=== PATIENT | female | born 1980 | race Caucasian/White ===

== ENCOUNTER 2018-05-16 23:43 | Observation (INO) ==
[2018-05-17] MEDS ORDERED: NS 1,000 ML IV ONE (00:16)
[2018-05-17 00:31] LABS: INFLUENZA A NEGATIVE (NEGATIVE); INFLUENZA B NEGATIVE (NEGATIVE)
[2018-05-17 00:40] LABS: BILIRUBIN URINE NEGATIVE (NEGATIVE); BLOOD URINE 4+ (NEGATIVE); CLARITY SL. CLOUDY (CLEAR); COLOR YELLOW; GLUCOSE URINE NEGATIVE (NEGATIVE); KETONE URINE NEGATIVE (NEGATIVE); LEUKOCYTES URINE 2+ (NEGATIVE); NITRITE URINE NEGATIVE (NEGATIVE); PH URINE 6.5; PROTEIN URINE 1+(30 mg/dL) mg/dL (NEGATIVE); UROBILINOGEN URINE NORMAL
[2018-05-17 00:41] LABS: URINE BACTERIA 3+ /HFP; URINE EPITHELIAL CELLS <10 /HPF (<10); URINE RBC TNTC /HPF (<10); URINE SOURCE CLEAN CATCH; URINE WBC 20-40 /HPF (<10)
[2018-05-17] MEDS ORDERED: TYLENOL PO ONE ×2 (00:59→02:52)
[2018-05-17 01:15] LABS: AGAP 14; ALBUMIN 3.5 g/dL (3.5-5.0); ALKALINE PHOSPHATASE 134 U/L (32-104); BUN 4 mg/dL (8-22); CALCIUM 8.4 mg/dL (8.8-10.2); CHLORIDE 96 mmol/L (98-107); COSMO 264; CREATININE 0.7 mg/dL (0.5-0.9); ESTIMATED GFR > 60; GLUCOSE 151 mg/dL (70-104); GOT 23 U/L (10-30); GPT 22 U/L (10-36); POTASSIUM 3.6 mmol/L (3.5-5.1); SODIUM 132 mmol/L (136-145); TCO2 22 mmol/L (25-35); TOTAL PROTEIN 7.3 g/dL (6.3-8.3)
[2018-05-17 01:21] LABS: BASO# 0.05 X1000 (0.0-0.2); BASO% 0.4 % (0.0-0.8); EOS# 0.03 X1000 (0.0-0.7); EOS% 0.2 % (0.0-10.0); HEMATOCRIT 43.8 % (37.0-47.0); HEMOGLOBIN 15.6 g/dL (12.0-16.0); IMM GRAN# 0.03 X1000 (0.0-0.04); IMM GRAN% 0.2 % (0.0-0.5); LYMPH# 1.63 X1000 (1.2-3.4); MCH 32.8 PG (27-31); MCHC 35.6 g/dL (33-37); MCV 92.2 FL (81-99); MONO# 1.41 X1000 (0.11-0.59); MONO% 11.2 % (1.7-9.3); MPV 10.2 FL (7.4-10.4); PLT 231 X1000 (130-400); RBC 4.75 XMIL (4.2-5.4); RDW 12.1 % (11.5-14.5); WBC 12.55 X1000 (4.8-10.8)
[2018-05-17] MEDS ORDERED: PROTONIX IV ONE (02:12)
[2018-05-17] MEDS ORDERED: SODIUM CHLORIDE 0.9% INJ ONE (02:12)
[2018-05-17] MEDS: LEVAQUIN 750 MG/D5W 750 MG/150 ML IVPB IV SCH (03:25)
--- NOTE | 2018-05-17 06:15 | Diag Imaging Result Doc PS360 ---
EXAM: CT ABD/PELVIS W/IV CONT ONLY HISTORY: pyelonephritis, nephroliathisis TECHNIQUE: CT abdomen and pelvis with intravenous contrast. COMPARISON: None. FINDINGS: There are bilateral breast implants. No calcified gallstones or adjacent inflammation. There is fatty infiltration of the liver. Normal spleen, pancreas, and adrenal glands. Normal enhancement of the left kidney. There is a 3.0 cm area in the upper pole of the right kidney with decreased enhancement. Mild perinephric inflammation. No hydronephrosis. Normal aorta. Normal appendix. No abscess. No bowel obstruction. No ascites. The urinary bladder is moderately distended and is normal. Normal uterus. There is an intrauterine device. Neither ovary is enlarged. IMPRESSION: 1.Right upper pole possible nephritis. Follow-up recommended. 2.Fatty infiltration of the liver 3.A preliminary report was given at 2:32 AM. This exam was performed using automated exposure control, adjustment of mA or kV according to patient size, and/or use of iterative reconstruction technique. Electronically signed by Ernie Dunn 05/17/2018 6:12 AM
[2018-05-17] MEDS: TYLENOL PO PRN ×2 (12:20→21:04)
[2018-05-17] MEDS ORDERED: TYLENOL PO PRN (12:21)
[2018-05-17] MEDS ORDERED: ZOFRAN IV PRN (12:21)
[2018-05-17] MEDS ORDERED: SYNTHROID PO SCH (12:30)
[2018-05-17] MEDS: PRINIVIL PO SCH (12:55)
[2018-05-17] MEDS: SYNTHROID PO SCH (12:55)
[2018-05-17] MEDS: NS 1,000 ML IV SCH (12:56)
[2018-05-17] MEDS ORDERED: SODIUM CHLORIDE 0.9% INJ SCH (14:00)
[2018-05-17] MEDS: PROTONIX IV SCH (15:25)
[2018-05-17] MEDS: ZOSYN 3.375 GM in NS 50 ML IV SCH ×2 (15:25→21:04)
--- NOTE | 2018-05-17 16:39 | PROVIDER DOCUMENTATION ---
This chart was entered by Mily Dias Scribe, acting as scribe for Ketty Kaplan MD. HPI-Abdominal Pain/GI Problem - General Source: patient - History of Present Illness-ABD Nature of Presenting Problems: 38 yof presents to ed w/co body aches, dizziness, sweating, fever, hot and cold chills, lower back, abd pain on right side and chest pain. pt also states she started new job and on the way home 2 days ago she vomited and had some nausea. pt believes shes had uti symptoms for few weeks now. c/o burning when urinating and feeling like she needs to "keep pushing" when going to the bathroom. pt noticed some blood spots on underwear. <Ketty Kaplan - Last Filed: 05/17/18 02:21> <Krissy Thornton - Last Filed: 05/17/18 02:47> - General Chief Complaint: Generalized Pain Stated Complaint: ALL OVER PAIN Time Seen by Provider: 05/17/18 00:09 Allergies/Adverse Reactions: Patient Allergies Allergy/AdvReac Type Severity Reaction Status Date / Time No Known Allergies Allergy Verified 05/17/18 00:12 Home Medications: Home Medication List Medication Instructions Recorded Confirmed Last Taken Type Levothyroxine Sodium [Synthroid] 150 microgm PO DAILY 09/04/14 05/17/18 History Lisinopril 20 mg PO DAILY 09/04/14 05/17/18 09/04/14 History Metoprolol [Lopressor] 50 mg PO DAILY 09/04/14 05/17/18 09/04/14 History Review of Systems - Adult - REVIEW OF SYSTEMS - ADULT Constitutional: reports: see HPI, chills, fever, night sweats. denies: fatique Eyes: reports: no symptoms reported Ears, Nose, Mouth & Throat: reports: no symptoms reported Cardiovascular: reports: see HPI, chest pain. denies: heart murmur, irregular heart rate, palpitations Respiratory: reports: no symptoms reported Gastrointestinal: reports: see HPI, abdominal pain, nausea, vomiting. denies: constipation, diarrhea, difficulty swallowing, rectal bleeding Genitourinary: reports: see HPI, dysuria, discharge (blood in underwear), urgency. denies: frequency, frequent UTI's, hesitency Musculoskeletal: reports: see HPI, back pain (lower back). denies: joint pain, joint swelling, muscle aches Integumentary: reports: no symptoms reported Neurological: reports: no symptoms reported Psychiatric: reports: no symptoms reported Endocrine: reports: see HPI, excessive sweating. denies: change in skin pigment , goiter, increased thirst, polyuria Hematologic/Lymphatic: reports: no symptoms reported Allergic/Immunologic: reports: no symptoms reported All Other Systems: Reviewed and Negative <Ketty Kaplan - Last Filed: 05/17/18 02:21> Past History - Adult - PAST MEDICAL HISTORY-ADULT Review of Records: reports: Old Records Reviewed, Nursing Assessment Review, Medications Reviewed, Social history reviewed & non-contributory. Major Childhood Illnesses: reports: history unknown Cardiovascular: reports: HTN, hyperlipidemia Respiratory: reports: denies history Gastrointestinal: reports: GERD Obstetrical/Gynecological: reports: denies history Genitourinary: reports: denies history Musculoskeletal: reports: denies history Neurological: reports: denies history Endocrine/Immune: reports: denies history, thyroid disorder Other Conditions: reports: denies history - PRIOR SURGERIES/PROCEDURES Surgical/Procedure History: reports: , breast - IMMUNIZATION STATUS Childhood Immunizations: See Nurse Assessment Flu Vaccine: See Nurse Assessment - FAMILY HISTORY Family History: other (SISTER HAS CHRONS DIAGNOSED AT 13) - SOCIAL HISTORY Smoking: cigarettes, less than 1 pack/day Provider spent 3-5 mins advising pt. on dangers of tobacco.: Discussed manners to quit use, and f/u contacts for add'l counseling. Substance Use: alcohol (2 beers daily) <Ketty Kaplan - Last Filed: 05/17/18 02:21> Physical Exam-General - PHYSICAL EXAM-ADULT Initial Vital Signs Reviewed: Yes - CONSTITUTIONAL General Appearance: alert, mild distress - EYES Eyes: PERRL/EOMI, pink conjunctivae - HEAD, EARS, NOSE, MOUTH & THROAT HENMT: normocephalic/atraumatic, moist mucous membranes, normal ENT inspection - NECK Neck: non-tender, full range of motion, supple - RESPIRATORY Respiratory: chest non-tender, lungs clear, normal breath sounds - CARDIOVASCULAR Cardiovascular: normal peripheral pulses, regular rate, rhythm. negative: bradycardia, tachycardia, extra beats - GASTROINTESTINAL (ABDOMEN) Abdominal Exam: normal bowel sounds, soft, tenderness (ruq). negative: abdominal bruit, abnormal bowel sounds, distended - LYMPHATIC Lymphatic: no adenopathy - MUSCULOSKELETAL Back Exam: normal inspection, decreased range of motion, other (lower back tenderness). negative: ecchymosis, kyphosis, lordosis Extremity: normal range of motion, non-tender, normal inspection - SKIN Integumentary: normal color, normal turgor, diaphoresis. 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 negative: anxious, paranoid, tearful <Ketty Kaplan - Last Filed: 05/17/18 02:21> Progress - PLAN OF CARE/RESULTS Progress/Plan/Lab Results: Vital Signs - 8 hr 05/16/18 23:48 Temperature 100.0 F H Pulse Rate 122 H Respiratory Rate 20 Blood Pressure 174/107 O2 Sat by Pulse Oximetry 97 Bedside Urine ED: Urine Bedside Start: 05/16/18 23:59 Freq: ORDERED Status: Active Protocol: Activity Type Activity Date Activity User E-Sign Co-Sign Detail Recorded Client Recorded Date Recorded By Document 05/17/18 00:01 [id number] 05/17/18 00:02 [id number] 05/17/18 00:01 Point of Care [Bedside Point of Care] -Lot # [id number] - Results Negative -Control Line Visible? Yes Orders Category Date Time Status ED: Urine Bedside ORDERED Care 05/16/18 23:[address] Stat Lab 05/16/18 23:[address] W/POSS RFLX CULT [URINALYSIS] Stat Lab 05/16/18 23:50 Received 0.9% Sodium Chloride Inj [Ns] 1,000 ml Med 05/17/18 00:16 Active IV 999 mls/hr Result Diagrams: 05/17/18 00:56 05/17/18 00:56 - REASSESSMENT Reassessment #1 Time Reassessed: 02:21 (states that she feels better with treatment so far. however air conditioning technician reports taht while she was in the CT, pt had hematemesis x1. protonix given. type and cross. ) Status: improving - CHANGE OF SHIFT REPORT (ED Provider) 1 Report Given and Care Transferred to:: Dr. Thornton Time of Transfer: 02:22 Items Pending: CT/MRI Results <Ketty KaplanNighat - Last Filed: 05/17/18 02:21> - PLAN OF CARE/RESULTS Progress/Plan/Lab Results: Vital Signs - 8 hr 05/16/18 23:48 05/17/18 02:38 Temperature 100.0 F H 100.9 F H Pulse Rate 122 H 102 H Respiratory Rate 20 20 Blood Pressure 174/107 146/94 O2 Sat by Pulse Oximetry 97 97 Bedside Urine ED: Urine Bedside Start: 05/16/18 23:59 Freq: ORDERED Status: Active Protocol: Activity Type Activity Date Activity User E-Sign Co-Sign Detail Recorded Client Recorded Date Recorded By Document 05/17/18 00:01 [id number] 05/17/18 00:02 [id number] 05/17/18 00:01 Point of Care [Bedside Point of Care] -Lot # [id number] - Results Negative -Control Line Visible? Yes Laboratory Results - last 24 hr 05/16/18 05/16/18 05/17/18 23:50 23:50 00:56 WBC 12.55 H RBC 4.75 Hgb 15.6 Hct 43.8 MCV 92.2 MCH 32.8 H MCHC 35.6 RDW Std Deviation 12.1 Plt Count 231 MPV 10.2 Immature Gran % (Auto) 0.2 Neut % (Auto) 75.0 Lymph % (Auto) 13.0 L Lake % (Auto) 11.2 H Eos % (Auto) 0.2 Baso % (Auto) 0.4 Immature Gran # (Auto) 0.03 Neut # (Auto) 9.40 H Lymph # (Auto) 1.63 Lake # (Auto) 1.41 H Eos # (Auto) 0.03 Baso # (Auto) 0.05 Sodium Potassium Chloride Carbon Dioxide Anion Gap BUN Creatinine Estimated GFR/1.73 m2 BUN/Creatinine Ratio Glucose Calculated Osmolality Calcium Total Bilirubin AST ALT Alkaline Phosphatase Total Protein Albumin Globulin Albumin/Globulin Ratio Urine Source CLEAN CATCH Urine Color YELLOW Urine Clarity SL. CLOUDY A Urine pH 6.5 Ur Specific [place] 1.010 Urine Protein 1+(30 mg/dL) A Urine Ketones NEGATIVE Urine Blood 4+ Urine Nitrite NEGATIVE Urine Bilirubin NEGATIVE Urine Urobilinogen NORMAL Urine Microscopic RBC TNTC A Urine WBC 2+ A Urine Microscopic WBC 20-40 A Ur Epithelial Cells <10 Urine Bacteria 3+ Urine Glucose NEGATIVE Influenza A (Rapid) NEGATIVE Influenza B (Rapid) NEGATIVE 05/17/18 00:56 WBC RBC Hgb Hct MCV MCH MCHC RDW Std Deviation Plt Count MPV Immature Gran % (Auto) Neut % (Auto) Lymph % (Auto) Lake % (Auto) Eos % (Auto) Baso % (Auto) Immature Gran # (Auto) Neut # (Auto) Lymph # (Auto) Lake # (Auto) Eos # (Auto) Baso # (Auto) Sodium 132 L Potassium 3.6 Chloride 96 L Carbon Dioxide 22 L Anion Gap 14 BUN 4 L Creatinine 0.7 Estimated GFR/1.73 m2 > 60 BUN/Creatinine Ratio 6 Glucose 151 H Calculated Osmolality 264 Calcium 8.4 L Total Bilirubin 0.50 AST 23 ALT 22 Alkaline Phosphatase 134 H Total Protein 7.3 Albumin 3.5 Globulin 4.0 Albumin/Globulin Ratio 1.0 Urine Source Urine Color Urine Clarity Urine pH Ur Specific [place] Urine Protein Urine Ketones Urine Blood Urine Nitrite Urine Bilirubin Urine Urobilinogen Urine Microscopic RBC Urine WBC Urine Microscopic WBC Ur Epithelial Cells Urine Bacteria Urine Glucose Influenza A (Rapid) Influenza B (Rapid) Orders Category Date Time Status ED: Urine Bedside ORDERED Care 05/16/18 23:[address] ABD/PELVIS W/IV CONT ONLY [CT] Stat Exams 05/17/18 00:52 Taken BLOOD CULTURE [BLDCUL] Stat Lab 05/17/18 02:38 Uncollected CBC WITH ELECTRONIC DIFF [HEME] Stat Lab 05/17/18 00:56 Completed COMPREHENSIVE METABOLIC PANEL [CHEM] Stat Lab 05/17/18 00:[address] Stat Lab 05/16/18 23:50 Completed TYPE & SCREEN [BBK] Stat Lab 05/17/18 02:[address] W/POSS RFLX CULT [URINALYSIS] Stat Lab 05/16/18 23:50 Completed URINE CULTURE [RM] Routine Lab 05/17/18 00:42 Ordered 0.9% Sodium Chloride Inj [Ns] 1,000 ml Med 05/17/18 00:16 Discontinued IV 999 mls/hr Acetaminophen [Tylenol] Med 05/17/18 00:59 Discontinued 500 mg PO NOW ONE Levaquin 750 mg/D5w IV Q24h Med 05/17/18 02:45 Ordered Levofloxacin 750 mg/D5w [Levaquin 750 mg/D5w] 750 mg in 150 ml IV Q24H Pantoprazole [Protonix] Med 05/17/18 02:12 Discontinued 80 mg IV NOW ONE Sodium Chloride 0.9% Med 05/17/18 02:12 Discontinued 10 ml INJ NOW ONE Result Diagrams: 05/17/18 00:56 05/17/18 00:56 - REASSESSMENT Reassessment #2 Time Reassessed: 02:45 Status: improving (Assumed care of this patient from Dr. Kaplan. Ct scan results reviewed with patient. Patient accepted for admission.) - CONSULTS/PCP/HOSPITALIST Notification #1 *Consult/PCP/Hospitalist*: Dr. Valle Time Discussed: 02:46 Consult Disposition: Admit <Krissy Thornton - Last Filed: 05/17/18 02:47> Departure <Ketty Kaplan - Last Filed: 05/17/18 02:21> - Departure Date of Disposition Decision: 05/17/18 Time of Disposition Decision: 02:46 Certified Medical Emergency: Emergent - Critical Care Note This patient required my direct & personal management of CC.: No <Krissy Thornton - Last Filed: 05/17/18 02:47> - Departure DIAGNOSIS: Cystitis, Pyelonephritis Disposition: ADMITTED INPATIENT 09 Condition: Stable Referrals and Follow-Ups: None,PCP [Primary Care Provider] - Attestation - Physician/ STERLING Attestation Patient care was provided by Advanced Practice Provider:: No The physician spent face to face time with patient:: Yes Advanced Practice Provider documentation review:: Supervising physician onsite and consulted in the evaluation and care of this patient. The physician did have a face to face encounter with the patient. <Ketty Kaplan - Last Filed: 05/17/18 02:21> - Physician/ STERLING Attestation Patient care was provided by Advanced Practice Provider:: No The physician spent face to face time with patient:: Yes Advanced Practice Provider documentation review:: Supervising physician onsite and consulted in the evaluation and care of this patient. The physician did have a face to face encounter with the patient. <Krissy Thornton - Last Filed: 05/17/18 02:47> This chart was documented by the indicated scribe, (Mily Dias, Jung) and accurately reflects the services I performed and decisions made by me, Ketty Kaplan MD, as attested by the provider's signature.
[2018-05-17 17:15] LABS: HEMOGLOBIN 14.7 g/dL (12.0-16.0)
[2018-05-17 17:17] LABS: HEMATOCRIT 41.9 % (37.0-47.0); MCH 32.7 PG (27-31); MCHC 35.1 g/dL (33-37); MCV 93.3 FL (81-99); MPV 9.8 FL (7.4-10.4); RBC 4.49 XMIL (4.2-5.4); RDW 12.2 % (11.5-14.5); WBC 9.67 X1000 (4.8-10.8)
--- NOTE | 2018-05-17 18:57 | HISTORY AND PHYSICAL ---
ADDENDUM TO HISTORY AND PHYSICAL: Patient seen examined by myself. Full note dictated and discussed with nurse practitioner. Patient presented to the hospital with body aches, chills, hot and cold, sweating, low back pain. States that the symptoms started very suddenly and she is having difficulty urinating. In the ER, she was diagnosed with pyelonephritis. We will admit her to the hospital. Pain control, IV fluids, antibiotics and will follow. cc: Mynor Valle MD
--- NOTE | 2018-05-17 19:50 | HISTORY AND PHYSICAL ---
CHIEF COMPLAINT: Body aches, fever, burning with urination. HISTORY OF PRESENT ILLNESS: This is a 38-year-old female who presented to the emergency room complaining of burning with urination as well as fever and body aches that started in the morning prior to arrival. She did state that she has had some dysuria off and on for about 2 weeks along with urgency and frequency. She was found to have a white count of 12.5 with a fever of 100.9. CT of the abdomen and pelvis revealed right upper pole nephritis with fatty infiltration of the liver. PAST MEDICAL HISTORY: 1. Gastroesophageal reflux disease. 2. Hypertension. 3. Thyroid disease. PAST SURGICAL HISTORY: section and breast augmentation. SOCIAL HISTORY: She smokes about 2 cigarettes a day. She drinks 2 beers daily. She denies any illicit drug use. ALLERGIES: No known drug allergies. HOME MEDICATIONS: Levothyroxine, lisinopril and metoprolol. REVIEW OF SYSTEMS: Discussed with patient with pertinent positives stated in the HPI. She denied any syncope, dizziness, chest pain, palpitations, recent weight loss or weight gain, any shortness of breath, PND, orthopnea, any black or bloody vomitus or stools. PHYSICAL EXAMINATION: GENERAL: This is a 38-year-old female who is lying in the bed in no distress. VITAL SIGNS: Blood pressure is 137/82 with a heart rate of 97, respirations are 20, temperature is 97.3 oral. HEENT: Eyes: Pupils are equal, round, react to light. EOMs are intact. Sclerae are anicteric. Head is normocephalic, atraumatic. Mucous membranes are moist. NECK: Supple with trachea midline. CARDIOVASCULAR: Regular rate and rhythm. S1 and S2 are appreciated. She has no lower extremity edema with peripheral pulses palpable x4 extremities. PULMONARY: Breath sounds are clear with no increased work of breathing noted. Chest rises and falls symmetrically with respiration. Chest wall is nontender to palpation. GASTROINTESTINAL: Abdomen is soft. She does have some right upper quadrant tenderness with bowel sounds in all 4 quadrants. She is nondistended. GENITOURINARY: She has right CVAT. NEUROLOGIC: She is alert and oriented x3. SKIN: Warm and dry. LABS: WBC is 12.5 with hemoglobin 15.6, hematocrit 43.8, platelets of 231. Sodium is 132, potassium 3.6, BUN 4, creatinine 0.7 with a glucose of 151. Influenza A and B are negative. Urinalysis reveals 4+ blood with too numerous to count red blood cells, 20 to 40 white blood cells, 3+ bacteria. This was a clean-catch specimen. MICROBIOLOGY: Urine culture and blood culture pending. ASSESSMENT AND PLAN: 1. Right pyelonephritis. 2. Cystitis. 3. Fever. 4. Gastroesophageal reflux disease. 5. Hypertension. 6. Hypothyroid. PLAN: She has been admitted to the medical-surgical floor. She will be placed on a regular diet with antibiotic coverage of Zosyn and Levaquin and further antibiotics will be culture driven. We will continue IV hydration. We will identify her home medications and continue these as appropriate. We will repeat a CBC and CMP in the morning. Further treatments pending hospital course. Dictated by KRUNAL Ferrari for Mynor Valle MD This chart was documented by, KRUNAL Ferrari and accurately reflects the services performed, treatment plan and medical decisions as attested by the providers signature Mynor Valle MD. cc: KRUNAL Ferrari MD
[2018-05-17] MEDS: DULCOLAX PO PRN (21:12)
[2018-05-18] MEDS: PROTONIX IV SCH ×2 (01:06→15:06)
[2018-05-18] MEDS: ZOSYN 3.375 GM in NS 50 ML IV SCH ×4 (01:07→20:09)
[2018-05-18] MEDS: NS 1,000 ML IV SCH (01:07)
[2018-05-18] MEDS: TYLENOL PO PRN (02:47)
[2018-05-18] MEDS: LEVAQUIN 750 MG/D5W 750 MG/150 ML IVPB IV SCH (02:47)
[2018-05-18] MEDS: SYNTHROID PO SCH ×2 (06:07)
[2018-05-18 07:02] LABS: BASO# 0.03 X1000 (0.0-0.2); BASO% 0.3 % (0.0-0.8); EOS# 0.08 X1000 (0.0-0.7); EOS% 0.9 % (0.0-10.0); HEMATOCRIT 42.2 % (37.0-47.0); HEMOGLOBIN 14.4 g/dL (12.0-16.0); IMM GRAN# 0.03 X1000 (0.0-0.04); IMM GRAN% 0.3 % (0.0-0.5); LYMPH# 1.43 X1000 (1.2-3.4); LYMPH% 15.5 % (20.5-51.1); MCH 31.6 PG (27-31); MCHC 34.1 g/dL (33-37); MCV 92.5 FL (81-99); MONO# 0.98 X1000 (0.11-0.59); MONO% 10.6 % (1.7-9.3); MPV 10.2 FL (7.4-10.4); NEUT# 6.66 X1000 (1.4-6.5); NEUT% 72.4 % (42.2-75.2); PLT 229 X1000 (130-400); RBC 4.56 XMIL (4.2-5.4); RDW 12.1 % (11.5-14.5); WBC 9.21 X1000 (4.8-10.8)
[2018-05-18 07:35] LABS: AGAP 14; ALBUMIN 2.9 g/dL (3.5-5.0); ALKALINE PHOSPHATASE 116 U/L (32-104); BUN 6 mg/dL (8-22); CALCIUM 8.4 mg/dL (8.8-10.2); CHLORIDE 101 mmol/L (98-107); COSMO 271; CREATININE 0.7 mg/dL (0.5-0.9); ESTIMATED GFR > 60; GLUCOSE 118 mg/dL (70-104); GOT 20 U/L (10-30); GPT 17 U/L (10-36); POTASSIUM 3.6 mmol/L (3.5-5.1); SODIUM 136 mmol/L (136-145); TCO2 22 mmol/L (25-35); TOTAL PROTEIN 6.8 g/dL (6.3-8.3)
[2018-05-18] MEDS: PRINIVIL PO SCH (09:03)
[2018-05-18] MEDS: DULCOLAX PO PRN (09:25)
[2018-05-18] MEDS ORDERED: CITRATE OF MAGNESIA PO ONE (16:07)
--- NOTE | 2018-05-18 17:51 | PROGRESS NOTE ---
DATE: 05/18/2018 SUBJECTIVE: Patient notes overall she feels a little bit better. She did have a low-grade fever yesterday, denies any current headaches or palpitations. Denies any shortness of breath. PHYSICAL: T-max 100.9 degrees, T current 98.3, pulse 97, respiratory 20, BP 142/93.General: Patient is awake, alert, she is very pleasant talk with. HEENT: Normocephalic, atraumatic. Neck: Supple. CV: Regular rate, no murmurs. Chest: Clear, nonlabored. Abdomen: Soft, nondistended, she has positive flank pain. Extremities: Moves all extremities. Neuro: No focal changes. ASSESSMENT: 1. Pyelonephritis . 2. Hypertension. 3. Hypothyroidism. PLAN: Will continue patient in the hospital, continue antibiotics, pain control and will follow. Hopefully she will continue to improve and can be discharged home tomorrow. cc: Mynor Valle MD
[2018-05-18] MEDS ORDERED: AMBIEN PO ONE (21:00)
[2018-05-19] MEDS: PROTONIX IV SCH (02:38)
[2018-05-19] MEDS: NS 1,000 ML IV SCH ×2 (02:39→04:45)
[2018-05-19] MEDS: LEVAQUIN 750 MG/D5W 750 MG/150 ML IVPB IV SCH (02:39)
[2018-05-19] MEDS: ZOSYN 3.375 GM in NS 50 ML IV SCH ×3 (02:39→15:03)
[2018-05-19] MEDS: SYNTHROID PO SCH ×2 (06:03)
[2018-05-19] MEDS: TYLENOL PO PRN ×2 (07:44→15:07)
[2018-05-19] MEDS: PRINIVIL PO SCH ×2 (07:45→13:06)
[2018-05-19 17:44] VITALS: BP 169/98
[2018-05-19] MEDS ORDERED: FLU VACCINE IM ONE (20:05)
[2018-05-19] MEDS ORDERED: PNEUMOVAX 23 IM ONE (20:05)
[2018-05-19] MEDS ORDERED: PROTONIX PO SCH (21:00)
--- NOTE | 2018-05-21 14:08 | DISCHARGE SUMMARY ---
ADMISSION DATE: 05/16/2018 DISCHARGE DATE: 05/19/2018 PRIMARY CARE PHYSICIAN: Dr. Mynor Valle. ADMISSION DIAGNOSES: 1. Right pyelonephritis. 2. Cystitis. 3. Fever. 4. Gastroesophageal reflux disease. 5. Hypertension. 6. Hypothyroidism. DISCHARGE DIAGNOSES: 1. Pyelonephritis. E. coli. 2. Hypertension. 3. Hypothyroidism. SUMMARY OF FINDINGS: This is a 38-year-old female who presented to the emergency room with complaints of burning with urination, fever, body aches that started the morning prior to arrival. She states that she had had some dysuria on and off for about 2 weeks with urgency and frequency. When she arrived, she had a white count of 12.5 with a fever of 100.9. CT of the abdomen and pelvis revealed a right upper pole nephritis with fatty infiltration of the liver. She was admitted and placed on IV antibiotics. Her culture grew out an E coli. She was treated appropriately, hydrated and remained fever free for greater than 24 hours, and it is now felt that she could safely be discharged home. DISCHARGE MEDICATIONS: 1. Included a prescription for Keflex 500 mg p.o. t.i.d. #30 with no refills. 2. Synthroid 150 mcg p.o. daily. 3. Lisinopril 20 mg p.o. daily. 4. Metoprolol 50 mg p.o. daily. 5. Prescription for Zofran ODT 4 mg p.o. q.6 hours p.r.n. #25 with no refills. FOLLOW-UP: She will follow up with her primary care physician in 1 to 2 weeks and call the office for an appointment. All discharge instructions were reviewed with the patient, and she verbalized understanding. TIME SPENT: 33 minutes. Dictated by KRUNAL Meza for Randy Olmstead MD cc: KRUNAL Meza MD Gregory S. Cheatham, MD
== END 2018-05-19 20:47 | disposition home or self-care (01) ==
LOC: P.MEDSURG 23:43 → P.ED 23:43 → SUATTDRO 23:44 → P.MEDSURG 05-17 08:33
PROVIDERS: ATTEND Internal Medicine
CPT/HCPCS: 74177; 80053; 81001; 81025; 85025; 85027; 86850; 86900; 86901; 87040; 87077; 87088; 87186; 87275; 87276; 87804; 90686; 90732; 96361; 96365; 96375; 99285; A9270; C9113; J1956; J2543; J7030; Q9967; S0164